=== PATIENT | female | born 1985 | race African-American/Black ===

== ENCOUNTER 2025-06-13 16:51 | Emergency (ER) | payer MEDICAID, OTHER ==
[~2025-06-13] VITALS: Ht 160 cm; Wt 63.5 kg
[2025-06-13] MEDS ORDERED: LOSA25TA27 PO (17:11)
[2025-06-13] MEDS ORDERED: AMLO-212 PO (17:11)
[2025-06-13 17:36] LABS: *URINE HCG, QUAL NEGATIVE (NEGATIVE)
[2025-06-13 17:37] LABS: *BILIRUBIN,URIN 1+ (NEGATIVE); *BLOOD, URINE NEGATIVE (NEGATIVE); *CLARITY,URINE CLEAR (CLEAR); *COLOR,URINE YELLOW (YELLOW); *KETONES,URINE 1+ (NEGATIVE); *PROTEIN,URINE 1+ (NEGATIVE); *UROBILINOGEN,URINE 1.0 E.U./dl (NORMAL); LEUKOCYTE ESTERASE ,URINE NEGATIVE (NEGATIVE); NITRITE, URINE NEGATIVE (NEGATIVE); UGLUCOSE NEGATIVE (NEGATIVE)
[2025-06-13 17:46] LABS: SQUAMOUS EPITHELIAL CELL,UR FEW /HPF (NONE SEEN)
[2025-06-13 17:46] LABS: PLATELET COUNT (AUTO) 270 K/uL (179-408); RED BLOOD CELL COUNT(AUTO) 4.83 MIL/uL (3.63-4.92); RED CELL DISTRIBUTION WIDTH 12.7 % (12.3-17.7); WHITE BLOOD COUNT (AUTO) 5.7 K/uL (3.8-11.8)
[2025-06-13 17:53] LABS: CREATININE 0.8 mg/dL (0.6-1.3); SODIUM SERUM 137.0 mmol/L (136-145); UREA NITROGEN, BLOOD 9.0 mg/dL (7-18)
[2025-06-13 17:59] LABS: ASPARTATE AMINOTRANSFERASE 13.0 U/L (15-37); TOTAL PROTEIN, SERUM 7.3 g/dL (6.4-8.2)
[2025-06-13] MEDS ORDERED: HYDROCODONE/APAP 5-325MG TABLET ONE (18:03)
[2025-06-13] MEDS: HYDROCODONE/APAP 5-325MG TABLET PO ONE (18:05)
[2025-06-13] MEDS ORDERED: MAGNESIUM HYDROXIDE 30 ML LIQUID UDC ONE (18:58)
[2025-06-13] MEDS: MAGNESIUM HYDROXIDE 30 ML LIQUID UDC PO ONE (18:59)
[2025-06-13 19:01] VITALS: BP 125/103; O2SAT 99
== END 2025-06-13 19:02 | disposition home or self-care (01) ==
LOC: ER 17:01
DX: R10.31 Right lower quadrant pain (principal); R10.2 Pelvic and perineal pain; I10 Essential (primary) hypertension; J45.909 Unspecified asthma, uncomplicated; Z79.899 Other long term (current) drug therapy; Z88.6 Allergy status to analgesic agent; Z88.8 Allergy status to other drugs, medicaments and biological substances
CPT/HCPCS: 36415; 74021; 76856; 84703; 85025; A4606; A4663

== ENCOUNTER 2025-09-03 10:39 | Emergency (ER) | payer SELFPAY ==
[~2025-09-03] VITALS: Ht 160 cm; Wt 63.5 kg
[~2025-09-03 10:39] MED LIST: AMLO-212 PO; LOSA25TA27 PO
[2025-09-03] MEDS ORDERED: OXYCODONE/APAP 5-325 MG TABLET ONE (11:19)
[2025-09-03] MEDS: OXYCODONE/APAP 5-325 MG TABLET PO ONE (11:21)
[2025-09-03] MEDS: ALBUTEROL SULFATE 2.5 MG/3 ML NEBU NEB ONE (11:28)
[2025-09-03] MEDS: IPRATROPIUM BROMIDE 0.5 MG/2.5 ML NEBU NEB ONE (11:28)
[2025-09-03 11:29] VITALS: O2SAT 98
[2025-09-03] MEDS ORDERED: ALBUTEROL SULFATE 2.5 MG/3 ML NEBU ONE (11:29)
[2025-09-03] MEDS ORDERED: IPRATROPIUM BROMIDE 0.5 MG/2.5 ML NEBU ONE (11:30)
[2025-09-03 12:29] VITALS: O2SAT 100
[2025-09-03 14:37] VITALS: BP 145/80
[2025-09-03] MEDS ORDERED: AMOX-430 PO (14:54)
[2025-09-03] MEDS ORDERED: PSEU-249 PO (14:54)
[2025-09-03] MEDS ORDERED: OXYC-128 PO (14:54)
[2025-09-03] MEDS ORDERED: ALBU18HF2 INH (14:54)
[2025-09-03] MEDS ORDERED: PRED20TA PO (14:54)
[2025-09-03] MEDS ORDERED: OXYM15MI4 NS (14:54)
[2025-09-03 15:17] VITALS: BP 158/81; O2SAT 98
== END 2025-09-03 15:17 | disposition home or self-care (01) ==
LOC: ER 10:39
DX: J45.901 Unspecified asthma with (acute) exacerbation (principal); J32.9 Chronic sinusitis, unspecified; Z79.52 Long term (current) use of systemic steroids; Z79.899 Other long term (current) drug therapy; Z88.6 Allergy status to analgesic agent
CPT/HCPCS: 99285; 73020; 94644; J7512; 94760; A4606; A4663; J3590